=== PATIENT | female | born 1985 | race Caucasian/White ===

== ENCOUNTER 2017-08-21 18:07 | Emergency (ER) | payer OTHER, SELFPAY | END 2017-08-21 18:44 | disposition home or self-care (01) | LOC: ERS 18:07 | DX: T23.261A Burn of second degree of back of right hand, initial encounter (principal); F17.210 Nicotine dependence, cigarettes, uncomplicated; G40.909 Epilepsy, unspecified, not intractable, without status epilepticus; Z79.899 Other long term (current) drug therapy; X10.0XXA Contact with hot drinks, initial encounter; Y99.0 Civilian activity done for income or pay | CPT/HCPCS: 99283 ==

== ENCOUNTER 2018-02-24 15:13 | Emergency (ER) | payer SELFPAY ==
[2018-02-24] MEDS ORDERED: HYDROcodone/Acetaminophen 10/325 mg Tablet ONE (15:37)
[2018-02-24] MEDS ORDERED: Lidocaine 1% PF 5 ML VIAL ONE (15:37)
[2018-02-24] MEDS ORDERED: Adacel (T-DAP) 0.5 ML VIAL ONE (16:09)
== END 2018-02-24 16:31 | disposition home or self-care (01) ==
LOC: ERS 15:13
DX: N76.4 Abscess of vulva (principal); G40.909 Epilepsy, unspecified, not intractable, without status epilepticus; F17.290 Nicotine dependence, other tobacco product, uncomplicated; Z79.899 Other long term (current) drug therapy; Z23 Encounter for immunization; Z71.6 Tobacco abuse counseling
CPT/HCPCS: 56405; 87070; 90471; 90715; 99406; J2001

== ENCOUNTER 2020-03-24 16:49 | Emergency (ER) | payer SELFPAY | END 2020-03-24 19:00 | disposition home or self-care (01) | LOC: ERS 16:49 | DX: G40.909 Epilepsy, unspecified, not intractable, without status epilepticus (principal); F17.210 Nicotine dependence, cigarettes, uncomplicated; Z79.899 Other long term (current) drug therapy | CPT/HCPCS: 36415; 80177; 99284 ==

== ENCOUNTER 2021-08-14 12:17 | Emergency (ER) | payer BC, SELFPAY ==
[2021-08-14 18:39] LABS: SARS-CoV-2 PCR by NAA DETECTED (NotDetected)
== END 2021-08-14 16:00 | disposition home or self-care (01) ==
LOC: ERS 12:17
DX: U07.1 COVID-19 (principal); J12.82 Pneumonia due to coronavirus disease 2019; F17.210 Nicotine dependence, cigarettes, uncomplicated
CPT/HCPCS: 71045; U0003; U0005

== ENCOUNTER 2022-02-08 02:00 | Emergency (ER) | payer SELFPAY ==
[2022-02-08] MEDS ORDERED: Acetaminophen 500 MG TAB ONE (04:12)
[2022-02-08] MEDS ORDERED: Ibuprofen 200 MG TAB ONE (04:12)
== END 2022-02-08 04:20 | disposition home or self-care (01) ==
LOC: ERS 02:00
DX: B34.9 Viral infection, unspecified (principal); Z20.822 Contact with and (suspected) exposure to COVID-19; G40.909 Epilepsy, unspecified, not intractable, without status epilepticus; F17.210 Nicotine dependence, cigarettes, uncomplicated; Z79.899 Other long term (current) drug therapy
CPT/HCPCS: 87804; 99283; U0003; U0005

== ENCOUNTER 2023-03-01 13:52 | Outpatient (CLI) | payer BC ==
[2023-03-01 14:51] LABS: #Eosinphils 0.1 10x3/uL (0.0-0.5); #Monocytes 0.5 10x3/uL (0.0-1.1); #Neutrophils 4.5 10x3/uL (1.5-8.4); %Basophils 0.5 % (0.0-2.0); %Eosinophils 1.6 % (0.0-6.0); %Monocytes 5.9 % (0.0-10.0); %Neutrophils 55.7 % (40.0-75.0); Hematocrit 38.3 % (34.9-44.5); Hemoglobin 12.9 g/dL (12.0-15.5); Mean Corpuscular HGB CONC 33.7 g/dL (32.0-36.0); Mean Corpuscular Hemoglobin 30.1 pg (27.0-33.0); Mean Corpuscular Volume 89.5 fl (81.6-98.3); Mean Platelet Volume 9.8 fl (7.4-10.4); Platelet Count 222 10x3/uL (150-450); RBC Distribution Width 12.4 % (11.5-14.5); Red Blood Cell (RBC) Count 4.28 10x6/uL (3.90-5.03)
[2023-03-01 15:12] LABS: ALT (SGPT) 9 U/L (8-55); AST (SGOT) 16 U/L (5-34); Albumin 4.4 g/dL (3.5-5.0); Alkaline Phosphatase 61 U/L (40-110); Anion Gap 13 mmol/L (10-20); BUN (Urea Nitrogen) 12 mg/dL (7.0-18.7); Bilirubin, Direct 0.3 mg/dL (0.1-0.3); Bilirubin, Total 0.7 mg/dL (0.2-1.2); Calc. Creatinine Clearance 0 mL/min (70-130); Calcium 8.9 mg/dL (7.8-10.44); Carbon Dioxide 23 mmol/L (22-29); Chloride 109 mmol/L (98-107); Estimated GFR 94; Glucose 93 mg/dL (70-105); Potassium 3.9 mmol/L (3.5-5.1); Sodium 141 mmol/L (136-145)
== END 2023-03-01 13:53 | disposition home or self-care (01) ==
LOC: LABBT 13:52
PROVIDERS: ATTEND Surgery
DX: Z01.812 Encounter for preprocedural laboratory examination (principal); K80.20 Calculus of gallbladder without cholecystitis without obstruction
CPT/HCPCS: 80048; 80076; 85025